=== PATIENT | female | born 2005 | race Caucasian/White ===

== ENCOUNTER 2024-09-08 21:54 | Emergency (ER) | payer BC ==
[~2024-09-08] VITALS: Ht 165.1 cm; Wt 81.8 kg
[2024-09-08 22:17] VITALS: BP 119/79; TEMP 98
[2024-09-08] MEDS ORDERED: Amoxicillin/Clavulanate K+ 875/125 MG TAB PO ONE (22:30)
[2024-09-08] MEDS ORDERED: Rabies Immune Globulin PF 300 UNITS/2 ML VIAL IM ONE (22:45)
[2024-09-08] MEDS ORDERED: Tetanus,Diphther Toxoid Adult 0.5 ML SYRINGE IM ONE (22:45)
[2024-09-08] MEDS ORDERED: AMOXICILLIN 8751 TAB PO (23:45)
[2024-09-09 00:10] VITALS: PULSE 78
[2024-09-11] MEDS ORDERED: TROKEND50 (13:53)
== END 2024-09-09 00:10 | disposition home or self-care (01) ==
LOC: COL.ER 21:54
DX: S50.811A Abrasion of right forearm, initial encounter (principal); W55.03XA Scratched by cat, initial encounter